=== PATIENT | male | born 1980 | race Two or more races ===

== ENCOUNTER 2024-12-24 13:59 | Inpatient (IN) | payer OTHER ==
[~2024-12-24] VITALS: Ht 167.6 cm; Wt 84.1 kg
[2024-12-24 14:18] VITALS: TEMP 98.4
[2024-12-24 15:40] LABS: PLATELET COUNT (AUTO) 131 K/uL (150-450); RED BLOOD CELL COUNT(AUTO) 4.65 MIL/uL (4.50-5.90); RED CELL DISTRIBUTION WIDTH 15.6 % (11.5-14.5); WHITE BLOOD COUNT (AUTO) 5.6 K/uL (4.5-11.0)
[2024-12-24 15:51] LABS: CALCIUM, TOTAL 7.6 mg/dL (8.8-10.5); CREATININE 0.57 mg/dL (0.60-1.30); GLOMERULAR FILTR. RATE CALC > 60 mL/min (>60); GLUCOSE,RANDOM 136 mg/dL (70-110); SODIUM SERUM 146 mmol/L (136-145); UREA NITROGEN, BLOOD 7 mg/dL (7-18)
[2024-12-24 16:00] LABS: TROPONIN I-HIGH SENSITIVITY 10 ng/L (<76)
[2024-12-24] MEDS: LORazepam 2 MG/ML VIAL IVP ONE (17:24)
[2024-12-24] MEDS: MAGNESIUM SULFATE 2 GM, MVI, ADULT NO.1 WITH VIT K 10 ML, THIAMINE 100 MG, FOLIC ACID 1... IV ONE (17:25)
[2024-12-24] MEDS ORDERED: MORPHINE SULFATE 4 MG/ML SYRINGE IVP PRN (19:00)
[2024-12-24] MEDS ORDERED: ALBUTEROL SULFATE 2.5 MG/0.5 ML NEB SOLUTION NEB SCH (19:00)
[2024-12-24] MEDS ORDERED: IPRATROPIUM BROMIDE 0.5 MG/2.5 ML NEB SOLUTION NEB PRN (19:00)
[2024-12-24] MEDS ORDERED: BISACODYL 10 MG RECTAL RECTAL SUPPOSITORY PR PRN (19:00)
[2024-12-24] MEDS ORDERED: MAGNESIUM HYDROXIDE SUSPENSION 30 ML UDCUP PO PRN (19:00)
[2024-12-24] MEDS ORDERED: ACETAMINOPHEN 325 MG TABLET PO PRN (19:00)
[2024-12-24] MEDS ORDERED: ONDANSETRON HCL 4 MG/2 ML VIAL IVP PRN (19:00)
[2024-12-24] MEDS ORDERED: LORazepam 2 MG/ML VIAL IVP PRN (19:00)
[2024-12-24] MEDS ORDERED: HYDROCODONE/ACETAMINOPHEN 5-325 MG TABLET PO PRN (19:00)
[2024-12-24] MEDS ORDERED: ZOLPIDEM TARTRATE 10 MG TABLET PO PRN (19:00)
[2024-12-25] MEDS ORDERED: HEPARIN SODIUM,PORCINE 5,000 UNITS/ML VIAL SQ SCH
[2024-12-25 01:00] VITALS: BP 131/79; PULSE 89; RESP 17; O2SAT 98
[2024-12-25] MEDS ORDERED: MAGNESIUM SULFATE 2 GM, MVI, ADULT NO.1 WITH VIT K 10 ML, THIAMINE 100 MG, FOLIC ACID 1... IV ONE (01:00)
[2024-12-25] MEDS ORDERED: PANTOPRAZOLE SODIUM 40 MG DR TABLET PO SCH (09:00)
== END 2024-12-24 20:49 | disposition left against medical advice (07) | DRG 52 ==
LOC: EMS 14:10 → EDBD 14:10 → EDH 18:56 → UNDODISIN 20:51
PROVIDERS: ADMIT Hospitalist; ATTEND Hospitalist
DX: G93.49 Other encephalopathy (principal); K70.30 Alcoholic cirrhosis of liver without ascites; E86.0 Dehydration; F10.229 Alcohol dependence with intoxication, unspecified; Z53.29 Procedure and treatment not carried out because of patient's decision for other reasons; F10.239 Alcohol dependence with withdrawal, unspecified; R41.82 Altered mental status, unspecified; Z86.79 Personal history of other diseases of the circulatory system
CPT/HCPCS: 80048; 83735; 84484; 85025; 93005; 96365; 96366; 96375; 99285; G0378; G0480; J2060; J3411; J3475; J3490; J7030; 36415-L1; 36415-TC